=== PATIENT | male | born 1955 | race African-American/Black ===

== ENCOUNTER 2022-09-10 11:55 | Emergency (ER) | payer BC ==
[2022-09-10 12:09] VITALS: BP 158/65; PULSE 85; RESP 18; TEMP 97.9; BMI 24.3
[2022-09-10] MEDS ORDERED: KETOROLAC TROMETHAMINE 15 MG/ML VIAL IM ONE (12:51)
[2022-09-10] MEDS ORDERED: LIDOCAINE 5% TOPICAL PATCH TP ONE (12:51)
[2022-09-10] MEDS ORDERED: diazePAM 5 MG TABLET PO ONE (12:51)
[2022-09-10] MEDS ORDERED: KETOROLAC TROMETHAMINE 15 MG/ML VIAL ONE (12:54)
[2022-09-10] MEDS ORDERED: LIDOCAINE 5% TOPICAL PATCH ONE (12:54)
[2022-09-10] MEDS ORDERED: diazePAM 5 MG TABLET ONE (12:54)
[2022-09-10] MEDS ORDERED: GABAPENTIN 300 MG CAPSULE PO ONE (13:55)
[2022-09-10] MEDS ORDERED: GABAPENTIN 300 MG CAPSULE ONE (14:16)
[2022-09-10] MEDS ORDERED: LIDOCAINE PATCH REMOVAL MC ONE (22:00)
== END 2022-09-10 14:26 | disposition home or self-care (01) ==
LOC: JER 11:55 → JERFT 11:55
PROC: 3E023GC Introduction of Other Therapeutic Substance into Muscle, Percutaneous Approach (ICD-10-PCS; principal; 2022-09-10)
DX: M54.16 Radiculopathy, lumbar region (principal)
CPT/HCPCS: 99284-25

== ENCOUNTER 2023-07-13 22:31 | Observation (INO) | payer BC ==
[2023-07-13 22:41] VITALS: BMI 25.8
[2023-07-14 01:36] LABS: BASO % 0.5 % (0-2.0); EOS % 1.3 % (0-4.5); HEMATOCRIT 37.3 % (35.4-49); LYMPH % 13.8 % (8-40); MCH 26.5 pg (25.7-33.7); MCHC 34.8 g/dl (32.0-35.9); MEAN CELL VOLUME 76.3 fl (80-96); MEAN PLT VOLUME 7.3 fl (7.5-11.1); MONO % 8.7 % (3.8-10.2); NEUT % 75.7 % (42.8-82.8); PLATELET COUNT 280 10^3/uL (134-434); RBC 4.89 M/mm3 (4.00-5.60); WHITE BLOOD COUNT 6.7 K/mm3 (4.0-10.0)
[2023-07-14] MEDS ORDERED: ACETAMINOPHEN 500 MG TABLET (FP) PO ONE (01:38)
[2023-07-14 01:41] VITALS: TEMP 98
[2023-07-14] MEDS ORDERED: ACETAMINOPHEN 1000 MG/100 ML BAG IVPB ONE (01:45)
[2023-07-14] MEDS ORDERED: ACETAMINOPHEN INJECTION 100 ML IVPB ONE (01:49)
[2023-07-14 02:01] LABS: INR 1.02 (0.83-1.09); PROTHROMBIN TIME (PATIENT) 11.8 SEC (9.7-13.0)
[2023-07-14 02:03] LABS: ACTIVATED PTT 27.2 SECONDS (25.2-36.5)
[2023-07-14 02:36] LABS: POTASSIUM 4.5 mmol/L (3.5-5.1)
[2023-07-14 02:40] LABS: ALBUMIN 3.4 g/dl (3.4-5.0); BLOOD UREA NITROGEN 11.1 mg/dL (7-18); MAGNESIUM 2.1 mg/dL (1.8-2.4)
[2023-07-14 02:44] LABS: BILIRUBIN,TOTAL 0.3 mg/dL (0.2-1)
[2023-07-14 04:57] LABS: URINE APPEARANCE CLEAR; URINE BILIRUBIN NEGATIVE (NEGATIVE); URINE COLOR YELLOW; URINE GLUCOSE (UA) NEGATIVE (NEGATIVE); URINE KETONE NEGATIVE (NEGATIVE); URINE LEUK ESTERASE NEGATIVE (NEGATIVE); URINE NITRITE NEGATIVE (NEGATIVE); URINE PROTEIN NEGATIVE (NEGATIVE)
[2023-07-14 04:58] LABS: EPI CELLS 4 /uL (0-25.1); HYALINE CASTS 1 /uL (0-3.1); URINE BACTERIA 10 /uL (0-1359); URINE RBC 13 /uL (0-23.9); URINE WBC 7 /uL (0-25.8)
[2023-07-14 05:55] LABS: URINE AMPHETAMINES NEGATIVE (NEGATIVE)
[2023-07-14 05:56] LABS: COCAINE, UR NEGATIVE (NEGATIVE); OPIATES, URI NEGATIVE (NEGATIVE); PHENCYCLIDINE,URINE NEGATIVE (NEGATIVE); URINE BARBITURATES NEGATIVE (NEGATIVE); URINE BENZODIAZEPINES NEGATIVE (NEGATIVE)
[2023-07-14 06:11] LABS: METHADONE, UR NEGATIVE (NEGATIVE)
[2023-07-14 07:36] LABS: HEMATOCRIT 37.9 % (35.4-49); HEMOGLOBIN 12.7 GM/dL (11.7-16.9); MCH 26.4 pg (25.7-33.7); MCHC 33.6 g/dl (32.0-35.9); MEAN CELL VOLUME 78.6 fl (80-96); MEAN PLT VOLUME 8.5 fl (7.5-11.1); PLATELET COUNT 286 10^3/uL (134-434); RBC 4.82 M/mm3 (4.00-5.60); RDW 16.5 % (11.9-15.9); WHITE BLOOD COUNT 6.8 K/mm3 (4.0-10.0)
[2023-07-14] MEDS ORDERED: levETIRAcetam 500 MG/5 ML INJECTION VIAL IVPB ONE (07:45)
[2023-07-14 08:23] LABS: POTASSIUM 4.5 mmol/L (3.5-5.1)
[2023-07-14 08:55] LABS: ALBUMIN 3.3 g/dl (3.4-5.0); BLOOD UREA NITROGEN 11.8 mg/dL (7-18); CALCIUM 8.7 mg/dL (8.5-10.1)
[2023-07-14 08:59] LABS: CREATININE 0.9 mg/dL (0.55-1.3)
[2023-07-14 09:01] LABS: BILIRUBIN,TOTAL 0.2 mg/dL (0.2-1); TOT PROT 6.9 g/dl (6.4-8.2)
[2023-07-14] MEDS ORDERED: ENOXAPARIN NA (PORCINE) 40 MG/0.4 ML DISP.SYRIN SQ SCH (10:00)
[2023-07-14] MEDS ORDERED: amLODIPine BESYLATE 5 MG TABLET (FP) PO SCH (12:15)
[2023-07-14] MEDS ORDERED: ASPIRIN 81 MG CHEWABLE TABLETS PO SCH (12:15)
[2023-07-14] MEDS ORDERED: amLODIPine BESYLATE 5 MG TABLET (FP) ONE (13:05)
[2023-07-14] MEDS ORDERED: ASPIRIN 81 MG CHEWABLE TABLETS ONE (13:06)
[2023-07-14 13:13] VITALS: BP 165/77; PULSE 67; RESP 20
[2023-07-14] MEDS ORDERED: levETIRAcetam 500 MG/5 ML INJECTION VIAL IVPB SCH (22:00)
== END 2023-07-14 18:59 | disposition left against medical advice (07) ==
LOC: JER 22:31 → JERBED 07-14 03:46
PROVIDERS: ADMIT Internal Medicine; ATTEND Internal Medicine
PROC: 3E033NZ Introduction of Analgesics, Hypnotics, Sedatives into Peripheral Vein, Percutaneous Approach (ICD-10-PCS; principal; 2023-07-14)
PROC: 3E033GC Introduction of Other Therapeutic Substance into Peripheral Vein, Percutaneous Approach (ICD-10-PCS; 2023-07-14)
DX: R55 Syncope and collapse (principal); W18.39XA Other fall on same level, initial encounter; Y93.89 Activity, other specified; Y92.090 Kitchen in other non-institutional residence as the place of occurrence of the external cause; F10.99 Alcohol use, unspecified with unspecified alcohol-induced disorder; I10 Essential (primary) hypertension; Z91.013 Allergy to seafood; F17.200 Nicotine dependence, unspecified, uncomplicated; F12.10 Cannabis abuse, uncomplicated
CPT/HCPCS: 0241U-QW; 36415; 70450-TC; 71045-TC-FY; 72125-TC; 73110-TC-RT-FY; 80053; 80061; 80307; 81003; 83735; 84484; 85025; 85027; 85610; 85730; 86850; 86900; 86901; 87086; 93005; 93010; 99285-25; G0378